=== PATIENT | female | born 1940 | race Caucasian/White ===

== ENCOUNTER 2022-12-29 18:54 | Outpatient (NON) | payer MEDICARE, SELFPAY ==
[2022-12-29 20:05] LABS: Appearance Urine Clear (Clear); Bacteria Urine Rare /hpf; Bilirubin Urine Negative (Negative); Blood Urine Trace (Negative); Color Urine Yellow (Yellow); Glucose Urine UA Negative (Negative); Ketones Urine Negative (Negative); Leukocyte Esterase Ur 2+ LEU/UL (Negative); Nitrate Urine Negative (Negative); Non Pathogenic Casts 0-2; Protein Urine Negative (Negative); Specific Grav Ur 1.015 (1.001-1.035); Squamous Epithelial Cell Urine Moderate /hpf (Few); Urobilinogen Urine 0.2 mg/dL (<2.0); pH Urine 6.5 (5.0-9.0)
[2022-12-29 20:09] LABS: Add Urine Microscopic? YES
== END 2022-12-29 18:55 | disposition home or self-care (01) ==
PROVIDERS: PCP Internal Medicine; Visit Provider Nurse Practitioner
DX: R35.0 Frequency of micturition (principal); R30.0 Dysuria; N39.0 Urinary tract infection, site not specified
CPT/HCPCS: 81001; 87086; 87088

== ENCOUNTER 2022-12-31 20:12 | Emergency (ER) | payer MEDICARE, SELFPAY ==
[2022-12-31 20:31] VITALS: BP 128/67; PULSE 106; RESP 18; TEMP 37.1; O2SAT 95
[2022-12-31 20:59] VITALS: BP 132/65; PULSE 93; O2SAT 98
--- NOTE | 2022-12-31 20:59 | ED.GENADULT ---
HPI - General Adult General Chief complaint: Skin/Abscess/Foreign Body Stated complaint: rash Time Seen by Provider: 12/31/22 20:43 History of Present Illness HPI narrative: 82-year-old female presented to the emergency department for evaluation for allergic reaction. Patient states that she was started on Macrobid on for a suspected urinary tract infection. Patient denies any abdominal pain. Patient denies any associate nausea vomiting or diarrhea. Patient noticed that she started having a rash on her arms and legs. Patient does have some shortness of breath secondary to her lung cancer but patient denies any worsening of her shortness of breath. Patient is saturating well on room air. Patient reports he does have a prior history of a penicillin allergy where after she was taking the penicillin she developed a focal rash on her leg. Patient had no other allergic symptoms from this. Related Data Home Medications Medication Instructions Recorded Confirmed cholecalciferol (vitamin D3) 25 25 mcg PO DAILY 11/03/22 12/29/22 mcg (1,000 unit) capsule lisinopril 20 mg tablet 20 mg PO DAILY 11/03/22 12/29/22 mecobalamin (vitamin B12) 1,000 1,000 mcg PO DAILY 11/03/22 12/29/22 mcg chewable tablet metoprolol succinate 25 mg capsule 25 mg PO DAILY 11/03/22 12/29/22 sprinkle, ext. release 24 hr famotidine 20 mg tablet 20 mg PO DAILY 12/29/22 12/29/22 ondansetron HCl 8 mg tablet 8 mg PO BID-TID PRN 12/29/22 12/29/22 osimertinib 40 mg tablet (Tagrisso) 40 mg PO DAILY 12/29/22 12/29/22 prochlorperazine maleate 10 mg 10 mg feeding tube BID PRN 12/29/22 12/29/22 tablet Allergies Allergy/AdvReac Type Severity Reaction Status Date / Time levofloxacin Allergy MUSCLE PAIN Verified 12/29/22 11:53 Penicillins Allergy RASH Verified 12/29/22 11:53 sulfacetamide Allergy RASH Verified 12/29/22 11:53 Review of Systems Review of Systems: All systems reviewed & are unremarkable except as noted in HPI and below PMFSH Past Medical History Medical History (Updated 01/01/23 @ 00:00 by Teresa Dafroy) Cancer Surgical History Surgical History (Updated 11/03/22 @ 10:02 by Citlali [facility]) H/O: hysterectomy (~1962) History of nephrectomy (~1992) Hx of cholecystectomy (~1962) Family History Family History (Updated 11/03/22 @ 10:06 by Citlali [facility]) Grandparent Alcoholism Mother Cancer Sibling Cancer Sibling Cancer Social History Social History (Updated 12/29/22 @ 12:09 by Citlali [facility]) Smoking status: Never smoker Lack of Transportation: No Lack of Food: Never True Current Housing: I Have Housing Concerned About Future Housing: No Difficulty Paying Gas/Electric Bills: No Difficulty Paying for Meds: No Currently Unemployed: No Education: High School Diploma/GED Difficulty w/ Childcare or Family Care: No Exam Narrative: APPEARANCE: Well appearing, no pain, no distress, well-nourished. HEAD: normocephalic, atraumatic. EYES: PERRLA/EOMI, conjunctivae clear. NOSE: Normal no drainage EARS:TMS clear with good light reflex. THROAT: Pharynx clear, no exudate. NECK: Supple. No adenopathy, no masses. RESPIRATORY: Airway patent, respirations nonlabored. Clear to auscultation bilaterally, no rales, rhonchi, wheezing. CARDIOVASCULAR: Regular rate and rhythm without murmurs rubs or gallops. ABDOMINAL: Soft, nontender, nondistended, normal bowel sounds MUSCULOSKELETAL: Moves all extremities. Strength/ROM intact, No edema, No calf tenderness. NEURO: Alert. Cranial nerves II through XII intact. Good gait. Good coordination SKIN: Drug rash on arms and legs Course Course Emergency Course: 82-year-old female presented the ED for evaluation of a suspected drug rash secondary to starting Macrobid. Patient was instructed to stop taking Macrobid. Patient states he does have a previous history of a penicillin allergy where 1 time she had a focal area of redness on her left
== END 2022-12-31 21:30 | disposition home or self-care (01) ==
LOC: ANHED 21:15
PROVIDERS: Emergency Provider Emergency Medicine; PCP Internal Medicine
DX: L27.0 Generalized skin eruption due to drugs and medicaments taken internally (principal); C34.90 Malignant neoplasm of unspecified part of unspecified bronchus or lung
CPT/HCPCS: 99283

== ENCOUNTER → 2023-01-20 10:27 | Outpatient (CLI) | payer MEDICARE, SELFPAY ==
--- NOTE | ~2023-01-20 | MM_ITS ---
EXAMINATION: MM screening tommy BI w sarita HISTORY: Screening mammogram TECHNIQUE: Craniocaudal and mediolateral oblique 3-D tomosynthesis images were obtained and synthetic 2-D images were generated. CAD analysis was submitted and interpreted. COMPARISON: No prior mammogram is available for comparison at this institution. BREAST PARENCHYMAL COMPOSITION: There are scattered areas of fibroglandular density. FINDINGS: There is no evidence of suspicious mass, calcification, or architectural distortion to sugg est malignancy in either breast. There has been no suspicious interval change. IMPRESSION: 1. No mammographic evidence of malignancy. 2. Recommend routine screening mammography in one year. BI-RADS Category 1: Negative Reviewed, dictated and finalized at location A.
== END ==
PROVIDERS: PCP Nurse Practitioner; Visit Provider Nurse Practitioner
DX: Z12.31 Encounter for screening mammogram for malignant neoplasm of breast (principal)
CPT/HCPCS: 77063; 77067

== ENCOUNTER 2023-05-01 10:23 | Outpatient (CLI) | payer MEDICARE, SELFPAY | END 2023-05-01 10:24 | disposition home or self-care (01) | PROVIDERS: PCP Internal Medicine; Visit Provider Internal Medicine | DX: R41.89 Other symptoms and signs involving cognitive functions and awareness (principal); I10 Essential (primary) hypertension; E78.5 Hyperlipidemia, unspecified; R30.0 Dysuria; C34.90 Malignant neoplasm of unspecified part of unspecified bronchus or lung | CPT/HCPCS: 36415; 84443 ==

== ENCOUNTER 2023-05-07 17:06 | Emergency (ER) | payer MEDICARE, SELFPAY ==
--- NOTE | ~2023-05-07 | CT_ITS ---
EXAMINATION: CT brain wo con DATE: 05/07/2023 21:50 INDICATION: dizziness vomiting . TECHNIQUE: Computed tomography (CT) of the head was performed without intravenous contrast. The mA wa s adjusted according to patient size. Iterative reconstruction technique was employed. The dose-lengt h product was 605.33 mGy-cm. COMPARISON: None. FINDINGS: No acute intracranial hemorrhage or extra-axial fluid collection. No hydrocephalus, mass, or herniation. No acute ischemic infarct. Unremarkable dural venous sinus attenuation. No acute osseous abnormality. Left maxillary sinus retention cyst/polyp, the remaining aerated spaces are clear. Moderate atrophy and chronic white matter change. Atherosclerotic intracranial calcification. Bilater al lens replacements. IMPRESSION: No acute intracranial process. Reviewed, dictated and finalized at location K.
--- NOTE | ~2023-05-07 | CT_ITS ---
EXAMINATION: CT abdomen pelvis w con DATE: 05/07/2023 22:02 INDICATION: L sided abd pain, N/V TECHNIQUE: Computed tomography (CT) of the abdomen and pelvis was performed with 100 mL Omnipaque-350 intravenous contrast. Automated exposure control and iterative reconstruction technique were employe d. The dose-length product was 336.39 mGy-cm. COMPARISON: None. FINDINGS: Lower thorax: Granulomas calcifications. Bibasilar scar/atelectasis. Liver: Normal. Biliary/Gallbladder: Gallbladder is absent. Mild intrahepatic and extra hepatic bile duct dilation, l ikely secondary to cholecystectomy. Pancreas: No mass or duct dilation. Spleen: Normal. Adrenals:No mass. Kidneys: Surgically absent left kidney. No recurrent mass. Mild right caliectasis. Focal cortical sca r at the right midpole. No suspicious mass, obstructing stone, or significant hydronephrosis on the r ight. GI tract: Mild distal esophageal and gastric wall edema. Small hiatal hernia. Focal short segment are a of dilated small bowel in the left mid abdomen, adjacent to a noninflamed duodenal diverticulum (ax ial image 81/186, coronal image 51/110). No large bowel dilation. Appendix presumably surgically abse nt. Diverticulosis without diverticulitis. Mesentery/Peritoneum: No ascites, mass, or free air. Retroperitoneum: No mass. Atherosclerotic abdominal aortic and/or arterial calcifications. Pelvis: Pelvic organs are within normal limits. Soft Tissues: Soft tissues and body wall unremarkable. Bones: No acute osseous finding. IMPRESSION: Mild esophagitis/gastritis. Status post left nephrectomy, no residual mass detected. Short segment focal small bowel dilation adjacent to a noninflamed duodenal diverticulum, may represe nt mild ileus. Early obstruction not excluded. Distended urinary bladder without wall thickening. Correlate for clinical findings of urinary retenti on. Reviewed, dictated and finalized at location K. IMPRESSION: Mild esophagitis/gastritis. Status post left nephrectomy, no residual mass detected. Short segment focal small bowel dilation adjacent to a noninflamed duodenal div erticulum, may represent mild ileus. Early obstruction not excluded. Distended urinary bladder without wall thickening. Correlate for clinical findi ngs of urinary retention.
[2023-05-07 17:08] VITALS: BP 174/92; PULSE 99; RESP 18; TEMP 37; O2SAT 100
--- NOTE | 2023-05-07 18:11 | ED.NAVMDI ---
HPI - Nausea/Vomiting/Diarrhea General Chief complaint: Nausea/Vomiting/Diarrhea <CLEMENCIA Lundy Last Filed: 05/08/23 03:06> Stated complaint: Dizzy, Nausea <CLEMENCIA Lundy Last Filed: 05/08/23 03:06> Time Seen by Provider: 05/07/23 17:42 <CLEMENCIA Lundy Last Filed: 05/08/23 03:06> Source: patient <CLEMENCIA Lundy Last Filed: 05/08/23 03:06> Mode of arrival: ambulatory <CLEMENCIA Lundy Last Filed: 05/08/23 03:06> Limitations: no limitations <CLEMENCIA Lundy Last Filed: 05/08/23 03:06> History of Present Illness HPI Narrative: Patient is an 83-year-old female who presents ED with report of dizziness, nausea, vomiting. Patient reports she became dizzy around 3 PM today. She describes the dizziness as feeling more lightheaded than that the room is spinning or things are moving around her. The dizziness is worse with sitting upright, turning her head left or right. She developed nausea and vomiting today and feels this is related to the dizziness. She does complain of mild gas pains throughout her left sided abdomen. Denies diarrhea, constipation, headache, vision changes, focal weakness, generalized weakness, numbness, confusion, fevers, cough or cold symptoms. Patient has never had dizziness like this before. <CLEMENCIA Lundy Last Filed: 05/08/23 03:06> Related Data Home medications: Home Medications Medication Instructions Recorded Confirmed cholecalciferol (vitamin D3) 25 25 mcg PO DAILY 11/03/22 05/01/23 mcg (1,000 unit) capsule lisinopril 20 mg tablet 20 mg PO DAILY 11/03/22 05/01/23 mecobalamin (vitamin B12) 1,000 1,000 mcg PO DAILY 11/03/22 05/01/23 mcg chewable tablet famotidine 20 mg tablet 20 mg PO DAILY 12/29/22 05/01/23 ondansetron HCl 8 mg tablet 8 mg PO BID-TID PRN 12/29/22 05/01/23 osimertinib 40 mg tablet (Tagrisso) 40 mg PO DAILY 12/29/22 05/01/23 prochlorperazine maleate 10 mg 10 mg PO BID PRN 01/09/23 05/01/23 tablet Bacillus coagulans 800 million cell PO 05/01/23 05/01/23 cell tablet (Digestive Advantage Probiotics-Prebiotic) albuterol sulfate 90 mcg/actuation 1 puff inhalation Q4H PRN 05/01/23 05/01/23 aerosol inhaler (Ventolin HFA) echinacea 500 mg capsule 500 mg PO BID 05/01/23 05/01/23 magnesium 200 mg tablet 200 mg PO .COMPLEX 05/01/23 05/01/23 triamcinolone acetonide 0.1 % 1 applic topical BID 05/01/23 05/01/23 topical cream zinc citrate 11 mg chewable tablet mg PO 05/01/23 05/01/23 <CLEMENCIA Lundy Last Filed: 05/08/23 03:06> Allergies/Adverse reactions: Allergies Allergy/AdvReac Type Severity Reaction Status Date / Time nitrofurantoin Allergy Mild Rash Verified 05/07/23 17:10 [From Macrobid] levofloxacin Allergy MUSCLE PAIN Verified 05/07/23 17:10 Penicillins Allergy RASH Verified 05/07/23 17:10 sulfacetamide Allergy RASH Verified 05/07/23 17:10 <CLEMENCIA Lundy Last Filed: 05/08/23 03:06> Review of Systems Review of Systems: CONSTITUTIONAL: Denies fever, chills, or sweats. EYES: Denies visual changes. CARDIOVASCULAR: Denies chest pain. RESPIRATORY: Denies dyspnea. GASTROINTESTINAL: See HPI. MUSCULOSKELETAL: Denies back pain, joint pain, or myalgia. NEUROLOGIC: See HPI. <CLEMENCIA Lundy Last Filed: 05/08/23 03:06> All systems reviewed & are unremarkable except as noted in HPI and below <CLEMENCIA Lundy Last Filed: 05/08/23 03:06> PMFSH Past Medical History Medical History: Medical History Cancer Dysuria <Jonna Greenwood PA-C - Last Filed: 05/08/23 03:06> Surgical History Surgical History: Surgical History H/O: hysterectomy (~1962) History of nephrectomy (~1992) Hx of cholecystectomy (~1962) <Jonna Woods
--- NOTE | 2023-05-07 18:23 | ECG_ITS ---
Measurements Intervals [place] Rate: 88 P: 28 [place]: 164 QRS: -5 QRSD: 84 T: -5 QT: 405 QTc: 492 Interpretive Statements SINUS RHYTHM WITH OCCASIONAL SUPRAVENTRICULAR PREMATURE COMPLEXES OTHERWISE ESSENTIALLY UNREMARKABLE ECG NO PREVIOUS ECG AVAILABLE FOR COMPARISON Electronically Signed On 05-08-2023 13:29:08 CDT by Magdiel Sena M.D.
[2023-05-07 19:00] LABS: Basophils Percent Auto 0.6 % (0.2-1.2); Eosinophils Absolute Auto 0.1 K/mm3 (0-0.3); Eosinophils Percent Auto 2.6 % (0-4.4); Hematocrit 39.3 % (37.0-47.0); Immature Granulocyte Absolute 0.01 K/mm3 (0.00-0.031); Immature Granulocyte Percent A 0.2 % (0-0.5); Lymphocytes Absolute Auto 1.48 K/mm3 (0.9-3.2); Lymphocytes Percent Auto 31.5 % (18.3-44.2); Mean Corpuscular HGB Conc 33.1 g/dl (32-36); Mean Corpuscular Volume 90.8 fl (80-100); Mean Platelet Volume 11.9 fl (7.4-10.4); Monocytes Absolute Auto 0.6 K/mm3 (0.1-0.6); Monocytes Percent Auto 12.1 % (2.6-8.5); Neutrophils Absolute Auto 2.5 K/mm3 (1.3-6.7); Platelet Count Result 227 k/mm3 (150-375); Red Blood Count 4.33 M/mm3 (4.2-5.4); Red Cell Distribution Width 13.4 % (11.5-14.5); White Blood Count 4.7 K/mm3 (4.5-10.0)
[2023-05-07] MEDS: MECLIZINE HCL 25 MG TABLET PO (19:02)
[2023-05-07] MEDS: SODIUM CHLORIDE 0.9% IV 1,000 ML 999 ML IV CONT (19:02)
[2023-05-07] MEDS: ONDANSETRON INJ 4 MG/2 ML VIAL IV PUSH (19:02)
[2023-05-07 20:29] LABS: Appearance Urine Clear (Clear); Bilirubin Urine Negative (Negative); Blood Urine Negative (Negative); Color Urine Yellow (Yellow); Glucose Urine UA Negative (Negative); Ketones Urine Negative (Negative); Leukocyte Esterase Ur Trace LEU/UL (Negative); Nitrate Urine Negative (Negative); Protein Urine Negative (Negative); Specific Grav Ur 1.015 (1.001-1.035); Urobilinogen Urine 0.2 mg/dL (<2.0); pH Urine 7.5 (5.0-9.0)
[2023-05-07 20:33] LABS: Bacteria Urine None Seen /hpf; Non Pathogenic Casts 0-2; RBC Urine 0-2 /hpf (0-2); Squamous Epithelial Cell Urine None seen /hpf (Few); WBC Urine 0-5 /hpf
[2023-05-07 20:36] LABS: Add Urine Microscopic? NO
[2023-05-07 21:44] LABS: Alanine Aminotransferase 14 U/L (6-35); Albumin Level 4.1 g/dL (3.5-5.1); Alkaline Phosphatase 78 U/L (38-126); Anion Gap 6 mmol/L (8-16); Aspartate Amino Transferase 25 U/L (14-36); Bilirubin,Total 0.5 mg/dL (0.2-1.3); Blood Urea Nitrogen 8 mg/dL (7-17); Calcium 8.4 mg/dL (8.4-10.2); Carbon Dioxide 28 mmol/L (22-30); Chloride 98 mmol/L (98-107); Estimated CRCL calculation 49 ml/min; Estimated Glomerular Filt Rate > 60; Glucose 113 mg/dL (65-110); Lipase 88 U/L (23-300); Potassium 3.9 mmol/L (3.4-5.0); Sodium 132 mmol/L (137-145)
[2023-05-07 22:04] LABS: Influenza A QL RT-PCR Negative (Negative); Influenza B QL RT-PCR Negative (Negative); SARS-CoV-2 RNA PCR Negative (Negative)
[2023-05-07 23:09] VITALS: BP 155/78; PULSE 91; RESP 12; O2SAT 99
[2023-05-07] MEDS: diazePAM INJ (*CRX) 10 MG/2 ML SYRINGE 2 MG IV PUSH (23:22)
== END 2023-05-08 01:03 | disposition home or self-care (01) ==
PROVIDERS: Emergency Provider Physician Assistant; PCP Internal Medicine
DX: K56.7 Ileus, unspecified (principal); R42 Dizziness and giddiness; Z20.822 Contact with and (suspected) exposure to COVID-19; Z85.9 Personal history of malignant neoplasm, unspecified; Z90.710 Acquired absence of both cervix and uterus; Z90.5 Acquired absence of kidney; Z90.49 Acquired absence of other specified parts of digestive tract
CPT/HCPCS: 36415; 70450; 74177; 80053; 81003; 83690; 85025; 87636; 93005; 96361; 96374; 96375; 99284; A9270; J2405; J3360; J7030; Q9967

== ENCOUNTER 2023-09-07 20:35 | Emergency (ER) | payer MEDICARE, SELFPAY ==
[2023-09-07] VITALS (9 sets, daily range): BP systolic 161–179; BP diastolic 81–85; PULSE 85–96; RESP 15–19; TEMP 37–37.3; O2SAT 97–100
--- NOTE | ~2023-09-07 | CT_ITS ---
CT of the Abdomen and Pelvis: Indication: Abdominal pain Technique: 2.5 mm axial scans were obtained through the abdomen and pelvis following intravenous adm inistration of 100 cc of Omnipaque 350. Dose reduction technique was used on this scan by utilizing a utomated exposure control and iterative reconstruction technique. The dose-length product (DLP) was 3 21.06 mGy-cm. Findings: Scans through the lung bases are unremarkable. The liver, spleen, pancreas, adrenals and right kidney are within normal limits. Patient is status po st cholecystectomy and left nephrectomy. There are atherosclerotic calcifications of the aorta. No l ymphadenopathy. No bowel obstruction or bowel wall thickening. There is no evidence to suggest acute appendicitis. Th ere is focal infiltrative change in the subcutaneous fat in the anterior left lower quadrant. Images through the pelvis were performed. Urinary bladder unremarkable. No pelvic mass seen. No ascit es. Impression: Focal infiltrative change in the subcutaneous fat in the anterior left lower quadrant. This could ref lect sequelae of subcutaneous injection. Correlate for focal inflammatory process. No other significant findings. Reviewed, dictated and finalized at location M. RAL SUPPLY NURSE Impression: Focal infiltrative change in the subcutaneous fat in the anterior left lower qu adrant. This could reflect sequelae of subcutaneous injection. Correlate for fo alvino inflammatory process. No other significant findings.
[2023-09-07 22:57] LABS: Basophils Percent Auto 0.5 % (0.2-1.2); Eosinophils Absolute Auto 0.1 K/mm3 (0-0.3); Eosinophils Percent Auto 1.7 % (0-4.4); Hematocrit 40.3 % (37.0-47.0); Hemoglobin 13.5 g/dL (12.0-15.0); Immature Granulocyte Absolute 0.01 K/mm3 (0.00-0.031); Immature Granulocyte Percent A 0.2 % (0-0.5); Lymphocytes Absolute Auto 0.82 K/mm3 (0.9-3.2); Lymphocytes Percent Auto 14.1 % (18.3-44.2); Mean Corpuscular HGB Conc 33.5 g/dl (32-36); Mean Corpuscular Hemoglobin 30.3 pg (26-34); Mean Corpuscular Volume 90.4 fl (80-100); Mean Platelet Volume 10.5 fl (7.4-10.4); Monocytes Absolute Auto 0.8 K/mm3 (0.1-0.6); Monocytes Percent Auto 12.9 % (2.6-8.5); Neutrophils Absolute Auto 4.1 K/mm3 (1.3-6.7); Neutrophils Percent Auto 70.6 % (45.5-73.1); Platelet Count Result 208 k/mm3 (150-375); Red Blood Count 4.46 M/mm3 (4.2-5.4); Red Cell Distribution Width 13.8 % (11.5-14.5); White Blood Count 5.8 K/mm3 (4.5-10.0)
[2023-09-07 23:12] LABS: Alanine Aminotransferase 13 U/L (6-35); Albumin Level 4.6 g/dL (3.5-5.1); Alkaline Phosphatase 116 U/L (38-126); Anion Gap 9 mmol/L (8-16); Aspartate Amino Transferase 28 U/L (14-36); Bilirubin,Total 0.7 mg/dL (0.2-1.3); Blood Urea Nitrogen 10 mg/dL (7-17); Calcium 9.4 mg/dL (8.4-10.2); Carbon Dioxide 27 mmol/L (22-30); Chloride 96 mmol/L (98-107); Estimated CRCL calculation 55 ml/min; Estimated Glomerular Filt Rate > 60; Glucose 117 mg/dL (65-110); Lipase 88 U/L (23-300); Potassium 3.7 mmol/L (3.4-5.0); Sodium 132 mmol/L (137-145)
[2023-09-07 23:17] LABS: Appearance Urine Clear (Clear); Bacteria Urine None Seen /hpf; Bilirubin Urine Negative (Negative); Blood Urine 1+ (Negative); Color Urine Yellow (Yellow); Glucose Urine UA Negative (Negative); Ketones Urine Trace mg/dL (Negative); Leukocyte Esterase Ur Negative LEU/UL (Negative); Nitrate Urine Negative (Negative); Non Pathogenic Casts 0-2; Protein Urine Negative (Negative); Specific Grav Ur 1.016 (1.001-1.035); Squamous Epithelial Cell Urine None seen /hpf (Few); Urobilinogen Urine 0.2 mg/dL (<2.0); WBC Urine 0-5 /hpf
--- NOTE | 2023-09-07 23:17 | ED.ABDPAIN ---
HPI - Abdominal Pain General Chief Complaint: Abdominal Pain Stated Complaint: abd/back pain L sided; post op vocal cord sx Time Seen by Provider: 09/07/23 22:18 History of Present Illness HPI narrative: Patient is an 83-year-old female presenting with abdominal pain. Patient's son is at bedside and helps with the history. States that she developed left lower quadrant pain earlier today it radiates into her left flank. Associated with nausea but no vomiting. Denies dysuria or urinary frequency. No chest pain or shortness of breath. States that she recently had a procedure done on her vocal cords. Related Data Home Medications Medication Instructions Recorded Confirmed cholecalciferol (vitamin D3) 25 25 mcg PO DAILY 11/03/22 05/16/23 mcg (1,000 unit) capsule lisinopril 20 mg tablet 20 mg PO DAILY 11/03/22 05/16/23 mecobalamin (vitamin B12) 1,000 1,000 mcg PO DAILY 11/03/22 05/16/23 mcg chewable tablet famotidine 20 mg tablet 20 mg PO DAILY 12/29/22 05/16/23 ondansetron HCl 8 mg tablet 8 mg PO BID-TID PRN 12/29/22 05/16/23 osimertinib 40 mg tablet (Tagrisso) 40 mg PO DAILY 12/29/22 05/16/23 prochlorperazine maleate 10 mg 10 mg PO BID PRN 01/09/23 05/16/23 tablet Bacillus coagulans 800 million cell PO 05/01/23 05/16/23 cell tablet (Digestive Advantage Probiotics-Prebiotic) echinacea 500 mg capsule 500 mg PO BID 05/01/23 05/16/23 magnesium 200 mg tablet 200 mg PO .COMPLEX 05/01/23 05/16/23 triamcinolone acetonide 0.1 % 1 applic topical BID 05/01/23 05/16/23 topical cream zinc citrate 11 mg chewable tablet mg PO 05/01/23 05/16/23 Allergies Allergy/AdvReac Type Severity Reaction Status Date / Time nitrofurantoin Allergy Mild Rash Verified 05/16/23 08:43 [From Macrobid] levofloxacin Allergy MUSCLE PAIN Verified 05/16/23 08:43 Penicillins Allergy RASH Verified 05/16/23 08:43 sulfacetamide Allergy RASH Verified 05/16/23 08:43 Review of Systems Review of Systems: All systems reviewed & are unremarkable except as noted in HPI and below PMFSH Past Medical History Medical History Cancer Dysuria Mild cognitive impairment Surgical History Surgical History H/O: hysterectomy (~1962) History of nephrectomy (~1992) Hx of cholecystectomy (~1962) Family History Family History Grandparent Alcoholism Mother Cancer Sibling Cancer Sibling Cancer Social History Social History Social History: Caffeine-daily Smoking status: Never smoker Alcohol intake: never Lack of Transportation: No Lack of Food: Never True Current Housing: I Have Housing Concerned About Future Housing: No Difficulty Paying Gas/Electric Bills: No Difficulty Paying for Meds: No Currently Unemployed: No Education: High School Diploma/GED Difficulty w/ Childcare or Family Care: No Exam Narrative: GENERAL: Well-appearing, In no acute distress, pleasant cooperative HEAD: Normocephalic, atraumatic. EYES: PERRLA and EOMI. ENT: Mucous membranes moist. NECK: Supple. CHEST: Clear to auscultation. No respiratory distress. HEART: Regular rate and rhythm. ABDOMEN: Soft, + left lower quadrant tenderness without guarding or rebound; area of ecchymosis LLQ from site of fat transfer EXTREMITIES: Normal range of motion. No edema. SKIN: Warm, dry, as above NEURO: No focal deficits. Alert and oriented x3. PSYCH: Normal mood and affect. Course Vital Signs Vital signs: Vital Signs Temperature 99.1 F 09/07/23 20:53 Pulse Rate 96 09/07/23 20:53 Respiratory Rate 15 09/07/23 20:53 Blood Pressure 179/84 H 09/07/23 20:53 Pulse Oximetry 99 09/07/23 20:53 Oxygen Delivery Room Air 09/07/23 20:53 Temperature 98.6 F 09/07/23 22:22 Pulse Rate 74
--- NOTE | 2023-09-07 23:24 | PC.NURSE ---
care and report given to NITESH Larios. all questions answered.
[2023-09-07 23:32] LABS: Add Urine Microscopic? YES
--- NOTE | 2023-09-07 23:33 | PC.NURSE ---
Assumed care of pt. Bedside report from NITESH Mahoney. Pt away at test at this time.
[2023-09-07] MEDS: SODIUM CHLORIDE 0.9% IV 1,000 ML 999 ML IV CONT (23:41)
[2023-09-08] VITALS (27 sets, daily range): BP systolic 100–172; BP diastolic 64–110; PULSE 74–86; RESP 14–16; O2SAT 92–100
[2023-09-08] MEDS: ONDANSETRON INJ 4 MG/2 ML VIAL IV PUSH (00:22)
--- NOTE | 2023-09-08 00:22 | PC.NURSE ---
Call received from [facility] who states they are unable to fax paperwork tonight because it is digital. States she will call [facility] to see if they will allow pt to come overnight and have the papers faxed in the am.
[2023-09-08] MEDS: MORPHINE SULFATE (*CRX) 2 MG/ML INJ IV PUSH ×2 (00:23→01:33)
--- NOTE | 2023-09-08 03:29 | PC.NURSE ---
Pt reports pain resolved.
== END 2023-09-08 04:28 | disposition home or self-care (01) ==
PROVIDERS: Emergency Provider Emergency Medicine; PCP Internal Medicine
DX: R10.32 Left lower quadrant pain (principal); R11.0 Nausea; G31.84 Mild cognitive impairment of uncertain or unknown etiology; Z85.9 Personal history of malignant neoplasm, unspecified; Z90.710 Acquired absence of both cervix and uterus; Z90.5 Acquired absence of kidney; Z90.49 Acquired absence of other specified parts of digestive tract
CPT/HCPCS: 36415; 74177; 80053; 81001; 83690; 85025; 96361; 96374; 96375; 99284; J2270; J2405; J7030; Q9967

== ENCOUNTER 2023-10-03 10:54 | Outpatient (CLI) | payer MEDICARE, SELFPAY ==
[2023-10-03 19:06] LABS: Appearance Urine Clear (Clear); Bacteria Urine None Seen /hpf; Bilirubin Urine Negative (Negative); Color Urine Yellow (Yellow); Glucose Urine UA Negative (Negative); Ketones Urine Negative (Negative); Leukocyte Esterase Ur Negative LEU/UL (NEGATIVE); Nitrate Urine Negative (Negative); Protein Urine Negative (Negative); Specific Grav Ur 1.014 (1.001-1.035); Squamous Epithelial Cell Urine Occasional /hpf (Few); Urobilinogen Urine 0.2 mg/dL (<2.0); WBC Urine 0-5 /hpf (0-3); pH Urine 6.5 (5.0-9.0)
[2023-10-03 19:19] LABS: Add Urine Microscopic? YES
== END 2023-10-03 10:55 | disposition home or self-care (01) ==
PROVIDERS: PCP Internal Medicine; Visit Provider Internal Medicine
DX: R10.9 Unspecified abdominal pain (principal); G89.29 Other chronic pain
CPT/HCPCS: 81001

== ENCOUNTER 2023-10-11 14:44 | Emergency (ER) | payer MEDICARE, SELFPAY ==
--- NOTE | ~2023-10-11 | CT_ITS ---
EXAMINATION: CTA chest PE abdomen pel DATE: 10/11/2023 18:11 INDICATION: Left chest pain. Dyspnea. Lung cancer. TECHNIQUE: Computed tomography angiography (CTA) of the chest was performed with 100 mL Omnipaque-350 intravenous contrast timed to evaluate the pulmonary arteries. Coronal maximum intensity projection 3D-reconstructions were created by the technologist. Computed tomography (CT) of the abdomen and pelv is was performed with intravenous contrast. Automated exposure control and iterative reconstruction t echnique were employed. The dose-length product was 422.00 mGy-cm. COMPARISON: CT abdomen and pelvis 09/07/23 FINDINGS: CTA chest: There is mild atelectasis in right lung. There is a large left pleural effusion with right clark shift of the mediastinum. There is nodular pleural thickening in left hemithorax, consistent met astatic disease. There is near complete collapse of left lung. Calcified left lung nodules are consis tent with old granulomatous disease. There is mild left supraclavicular lymphadenopathy. The heart si ze is normal. No pericardial effusion. There is no pulmonary embolus. There is thoracic kyphosis and severe spondylosis. CT abdomen and pelvis: The liver is normal. There are changes of cholecystectomy. The spleen, pancrea s, and adrenal glands are normal. There is focal cortical thinning of right kidney. There are changes of left nephrectomy. There is diverticulosis of the colon without evidence of diverticulitis. The ap pendix is not visualized. There is aortic atherosclerosis is noted. There is left para-aortic lymphad enopathy. There is no free intraperitoneal fluid. There is moderate lumbar spondylosis. IMPRESSION: 1. Large malignant left pleural effusion with rightward shift of the mediastinum. 2. Left supraclavicular and left para-aortic lymphadenopathy, consistent with metastatic disease. 3. No pulmonary embolus. Reviewed, dictated and finalized at location E. ER/PULLER IMPRESSION: 1. Large malignant left pleural effusion with rightward shift of the mediastinu m. 2. Left supraclavicular and left para-aortic lymphadenopathy, consistent with m etastatic disease. 3. No pulmonary embolus.
--- NOTE | ~2023-10-11 | US_ITS ---
EXAMINATION: US thoracentesis DATE: 10/13/2023 16:45 INDICATION: Unilateral left pleural effusion TECHNIQUE: The procedure and its risks and benefits were discussed with the patient. Potential risks discussed included bleeding, infection, and pneumothorax. The patient understood the risks and agreed to proceed. The skin was prepped and draped in sterile fashion. 1% lidocaine was used for local anes thesia. Under ultrasound guidance, a 5 Fr catheter with trochar was advanced into the large left pleu ral effusion. Fluid was aspirated. The catheter was removed, and a dressing was applied. There were n o immediate complications. FINDINGS: Ultrasound images demonstrate a arch left pleural effusion and the catheter within the fluid. Inciden tally noted are a couple approximately 3 x 2 cm pleural-based masses along the diaphragm as well as a 9 mm hypoechoic nodule corresponding to a subpectoral lymph node on prior CT but which are concernin g for metastatic disease. IMPRESSION: 1. Successful ultrasound-guided thoracentesis yielding 1100 mL of bloody dark maroon-colored fluid w hich is concerning for malignant pleural effusion. 2. A couple pleural-based masses and prominent subpectoral lymph node concerning for metastatic disea se. Reviewed, dictated and finalized at location A. GER CASH IMPRESSION: 1. Successful ultrasound-guided thoracentesis yielding 1100 mL of bloody dark maroon-colored fluid which is concerning for malignant pleural effusion. 2. A couple pleural-based masses and prominent subpectoral lymph node concernin g for metastatic disease.
--- NOTE | ~2023-10-11 | XR_ITS ---
XR chest 1V portable DATE: 10/14/2023 10:07 INDICATION: Shortness of breath TECHNIQUE: Portable upright AP chest on 10/14/2023 at 1002 hours COMPARISON: 10/13/2023 AP chest FINDINGS: Moderately large left pleural effusion with associated compressive atelectasis of the left lung. Suggestion of slight left apical pneumothorax. The right lung appears clear. No right pleural effusion. Heart size is not assessable due to the obliteration of the left cardiac margin by the pleural fluid collection. Aortic arch calcification. Diffuse osteopenia. IMPRESSION: Moderately large left pleural effusion; suggestion of slight left apical pneumothorax Reviewed, dictated and finalized at location A. SCHOOL SCIENCE TUTOR IMPRESSION: Moderately large left pleural effusion; suggestion of slight left a pical pneumothorax
--- NOTE | ~2023-10-11 | XR_ITS ---
EXAMINATION: [id number] DATE: 10/13/2023 16:27 INDICATION: Left pleural effusion status post thoracentesis. TECHNIQUE: A single frontal view of the chest was obtained. COMPARISON: Chest CT 10/11/2023, chest 2 views 10/11/23 FINDINGS: There is a large left pleural effusion. There is rightward shift of mediastinum. Calcified pulmonary nodules and calcified hilar and mediastinal lymph nodes are consistent with old granulomato us disease. No pneumothorax. The heart size is obscured. IMPRESSION: 1. Large left pleural effusion with rightward shift of the mediastinum with slight improvement status post thoracentesis. Reviewed, dictated and finalized at location E. [employer] DRIVER IMPRESSION: 1. Large left pleural effusion with rightward shift of the mediastinum with sli ght improvement status post thoracentesis.
--- NOTE | ~2023-10-11 | XR_ITS ---
EXAMINATION: XR chest 1V portable DATE: 10/14/2023 15:00 INDICATION: Left pneumothorax. TECHNIQUE: A single frontal view of the chest was obtained. COMPARISON: Chest single view at 10:00 AM. FINDINGS: There is a large left pleural effusion with nodular pleural thickening. There are airspace opacities in left lung. No pneumothorax. The heart size is obscured. There are surgical clips in the abdomen. IMPRESSION: 1. Worsened large left pleural effusion with nodular pleural thickening, consistent with metastatic d isease. Reviewed, dictated and finalized at location E. NEY REPAIRER IMPRESSION: 1. Worsened large left pleural effusion with nodular pleural thickening, consis tent with metastatic disease.
--- NOTE | ~2023-10-11 | XR_ITS ---
EXAMINATION: XR chest 2V DATE: 10/11/2023 15:39 INDICATION: Weakness. TECHNIQUE: Frontal and lateral views of the chest were obtained on 3 radiographs. COMPARISON: CT abdomen and pelvis 09/07/2023 FINDINGS: There is a large left pleural effusion with rightward shift of the mediastinum. There are a irspace opacities in left lung with a dependent predominance. A calcified right lung nodule is consis tent with old granulomatous disease. No pneumothorax. The heart size is obscured. There are surgical clips in the abdomen. IMPRESSION: 1. Large left pleural effusion. 2. Airspace opacities in left lung, consistent with atelectasis versus pneumonia. Reviewed, dictated and finalized at location E. NE ELECTRICIAN IMPRESSION: 1. Large left pleural effusion. 2. Airspace opacities in left lung, consistent with atelectasis versus pneumoni a.
[2023-10-11 15:09] VITALS: BP 126/65; PULSE 61; RESP 16; TEMP 36.5; O2SAT 95
--- NOTE | 2023-10-11 15:13 | ECG_ITS ---
Measurements Intervals [place] Rate: 120 P: 32 [place]: 139 QRS: 2 QRSD: 84 T: 50 QT: 331 QTc: 469 Interpretive Statements SINUS TACHYCARDIA ATRIAL AND VENTRICULAR PREMATURE COMPLEXES CONSIDER INFERIOR INFARCT, AGE INDETERMINATE BORDERLINE ST-T WAVE ABNORMALITY- ANTEROLAT/HIGH LAT LEADS BASELINE ARTIFACT- I, II, III, AVR, AVL, AVF, V1-V3 ABNORMAL ECG COMPARED TO ECG 05/07/2023 19:10:02 SINUS TACHYCARDIA NOW PRESENT Electronically Signed On 10-11-2023 15:52:24 PAPER REEL OPERATOR by Pavel Hull D.O.
--- NOTE | 2023-10-11 15:14 | ED.GENADULT ---
HPI - General Adult General Chief complaint: Unspecified <CLEMENCIA Courtney Last Filed: 10/14/23 17:15> Stated complaint: Dehydration <CLEMENCIA Courtney Last Filed: 10/14/23 17:15> Time Seen by Provider: 10/11/23 15:14 <CLEMENCIA Courtney Last Filed: 10/14/23 17:15> Focused HPI: This is a 83 year old female that presents to the ER for generalized weakness. Associated with decreased PO intake. Reports history of lung cancer for which she is currently being treated at [facility]. Reports left lower quadrant pain radiating into the flank which has been ongoing for a couple of weeks. Started after having radiation. Denies fever, vomiting, dysuria. GENERAL: Elderly, well-nourished, and in no acute distress. HEAD: Normocephalic, atraumatic. CHEST: No respiratory distress. Lung sounds diminished on the left HEART: Irregularly irregular? NEURO: ?Alert and oriented x3. Patient screened in triage and initial orders placed.? ?Additional care and disposition to be based upon?diagnostic testing and treatment. <CLEMENCIA Courtney Last Filed: 10/14/23 17:15> History of Present Illness HPI narrative: 83 y/o F with a hx of HTN, HLD, who is currently being treated for stage III lung cancer at [facility] reports for evaluation for generalized weakness and decreased p.o. intake in the past 48 hours.? Patient presents with her son at bedside who assists with history.? The patient has become more weak.? She is complaining of left lower quadrant abdominal pain which she has had multiple CTs of in the past without acute findings.? States her abdominal pain radiates to the left flank and back. Her PCP is advised her to take Tylenol for pain control which has not been working.? She is not complaining of left chest wall pain that is worse with palpation beneath her left breast and difficulty breathing that has been worse in the past few days.? She reports associated nausea but no vomiting, diarrhea, fever, cough, dysuria or hematuria.? She had radiation therapy in August 2023 is currently taking a daily chemotherapy pill.? Her oncologist is Dr. Rojo. <CLEMENCIA Cobian Filed: 10/20/23 13:08> Related Data Home medications: Home Medications Medication Instructions Recorded Confirmed cholecalciferol (vitamin D3) 25 25 mcg PO DAILY 11/03/22 10/03/23 mcg (1,000 unit) capsule lisinopril 20 mg tablet 20 mg PO DAILY 11/03/22 10/03/23 mecobalamin (vitamin B12) 1,000 1,000 mcg PO DAILY 11/03/22 10/03/23 mcg chewable tablet famotidine 20 mg tablet 20 mg PO DAILY 12/29/22 10/03/23 ondansetron HCl 8 mg tablet 8 mg PO BID-TID PRN 12/29/22 10/03/23 osimertinib 40 mg tablet (Tagrisso) 40 mg PO DAILY 12/29/22 10/03/23 prochlorperazine maleate 10 mg 10 mg PO BID PRN 01/09/23 10/03/23 tablet Bacillus coagulans 800 million cell PO 05/01/23 10/03/23 cell tablet (Digestive Advantage Probiotics-Prebiotic) echinacea 500 mg capsule 500 mg PO BID 05/01/23 10/03/23 magnesium 200 mg tablet 200 mg PO .COMPLEX 05/01/23 10/03/23 triamcinolone acetonide 0.1 % 1 applic topical BID 05/01/23 10/03/23 topical cream zinc citrate 11 mg chewable tablet mg PO 05/01/23 10/03/23 vitamin A-vitamin C-vitamin E 1 tablet PO DAILY 09/11/23 10/03/23 <Faye Rodriguez PA-C - Last Filed: 10/14/23 17:15> Allergies/adverse reactions: Allergies Allergy/AdvReac Type Severity Reaction Status Date / Time nitrofurantoin Allergy Mild Rash Verified 10/11/23 15:12 [From Macrobid] levofloxacin Allergy MUSCLE PAIN Verified 10/11/23 15:12 Penicillins Allergy RASH Verified 10/11/23 15:12 sulfacetamide Allergy RASH Verified 10/11/23 15:12 <Faye Rodriguez PA-C - Last Filed: 10/14/23 17:15> Review of Systems Review of Systems: CONSTITUTIONAL: Denies fever, chills, or sweats. EYES: Denies visual changes, redness, or discharge. ENT: Denies rhinorrhea, congestion, sore throat, or otalgia. CARDIOVASCULAR: Denies chest pain, p
[2023-10-11 15:41] LABS: Basophils Percent Auto 0.2 % (0.2-1.2); Eosinophils Absolute Auto 0.1 K/mm3 (0-0.3); Eosinophils Percent Auto 0.6 % (0-4.4); Hematocrit 38.3 % (37.0-47.0); Hemoglobin 13.2 g/dL (12.0-15.0); Immature Granulocyte Absolute 0.08 K/mm3 (0.00-0.031); Immature Granulocyte Percent A 0.6 % (0-0.5); Lymphocytes Absolute Auto 0.82 K/mm3 (0.9-3.2); Lymphocytes Percent Auto 6.5 % (18.3-44.2); Mean Corpuscular HGB Conc 34.5 g/dl (32-36); Mean Corpuscular Hemoglobin 31.4 pg (26-34); Mean Platelet Volume 10.7 fl (7.4-10.4); Monocytes Absolute Auto 1.3 K/mm3 (0.1-0.6); Monocytes Percent Auto 10.1 % (2.6-8.5); Neutrophils Absolute Auto 10.4 K/mm3 (1.3-6.7); Platelet Count Result 338 k/mm3 (150-375); Red Blood Count 4.21 M/mm3 (4.2-5.4); Red Cell Distribution Width 14.5 % (11.5-14.5); White Blood Count 12.7 K/mm3 (4.5-10.0)
[2023-10-11 15:56] LABS: Alanine Aminotransferase 15 U/L (6-35); Albumin Level 4.1 g/dL (3.5-5.1); Alkaline Phosphatase 100 U/L (38-126); Anion Gap 13 mmol/L (8-16); Aspartate Amino Transferase 32 U/L (14-36); Bilirubin,Total 0.7 mg/dL (0.2-1.3); Blood Urea Nitrogen 18 mg/dL (7-17); Calcium 9.3 mg/dL (8.4-10.2); Carbon Dioxide 23 mmol/L (22-30); Chloride 86 mmol/L (98-107); Estimated CRCL calculation 49 ml/min; Estimated Glomerular Filt Rate > 60; Glucose 121 mg/dL (65-110); Lipase 87 U/L (23-300); Potassium 3.3 mmol/L (3.4-5.0); Sodium 122 mmol/L (137-145)
[2023-10-11 16:07] LABS: Appearance Urine Clear (Clear); Bacteria Urine None Seen /hpf; Bilirubin Urine Negative (Negative); Color Urine Yellow (Yellow); Glucose Urine UA Negative (Negative); Ketones Urine 2+ mg/dL (Negative); Leukocyte Esterase Ur Negative LEU/UL (Negative); Nitrate Urine Negative (Negative); Non Pathogenic Casts 0-2; Protein Urine Negative (Negative); Specific Grav Ur 1.018 (1.001-1.035); Squamous Epithelial Cell Urine None seen /hpf (Few); WBC Urine 0-5 /hpf
[2023-10-11 16:12] LABS: Add Urine Microscopic? YES
--- NOTE | 2023-10-11 17:41 | ED.GENADULT ---
HPI - General Adult General Chief complaint: Unspecified Stated complaint: Dehydration Time Seen by Provider: 10/11/23 15:14 History of Present Illness HPI narrative: 83 y/o F with a hx of HTN, HLD, who is currently being treated for stage III lung cancer at [facility] reports for evaluation for generalized weakness and decreased p.o. intake in the past 48 hours. Patient presents with her son at bedside who assists with history. The patient has become more weak. She is complaining of left lower quadrant abdominal pain which she has had multiple CTs of in the past without acute findings. States her abdominal pain radiates to the left flank and back. Her PCP is advised her to take Tylenol for pain control which has not been working. She is not complaining of left chest wall pain that is worse with palpation beneath her left breast and difficulty breathing that has been worse in the past few days. She reports associated nausea but no vomiting, diarrhea, fever, cough, dysuria or hematuria. She had radiation therapy in August 2023 is currently taking a daily chemotherapy pill. Her oncologist is Dr. Rojo. Related Data Home Medications Medication Instructions Recorded Confirmed cholecalciferol (vitamin D3) 25 25 mcg PO DAILY 11/03/22 10/03/23 mcg (1,000 unit) capsule lisinopril 20 mg tablet 20 mg PO DAILY 11/03/22 10/03/23 mecobalamin (vitamin B12) 1,000 1,000 mcg PO DAILY 11/03/22 10/03/23 mcg chewable tablet famotidine 20 mg tablet 20 mg PO DAILY 12/29/22 10/03/23 ondansetron HCl 8 mg tablet 8 mg PO BID-TID PRN 12/29/22 10/03/23 osimertinib 40 mg tablet (Tagrisso) 40 mg PO DAILY 12/29/22 10/03/23 prochlorperazine maleate 10 mg 10 mg PO BID PRN 01/09/23 10/03/23 tablet Bacillus coagulans 800 million cell PO 05/01/23 10/03/23 cell tablet (Digestive Advantage Probiotics-Prebiotic) echinacea 500 mg capsule 500 mg PO BID 05/01/23 10/03/23 magnesium 200 mg tablet 200 mg PO .COMPLEX 05/01/23 10/03/23 triamcinolone acetonide 0.1 % 1 applic topical BID 05/01/23 10/03/23 topical cream zinc citrate 11 mg chewable tablet mg PO 05/01/23 10/03/23 vitamin A-vitamin C-vitamin E 1 tablet PO DAILY 09/11/23 10/03/23 Allergies Allergy/AdvReac Type Severity Reaction Status Date / Time nitrofurantoin Allergy Mild Rash Verified 10/11/23 15:12 [From Macrobid] levofloxacin Allergy MUSCLE PAIN Verified 10/11/23 15:12 Penicillins Allergy RASH Verified 10/11/23 15:12 sulfacetamide Allergy RASH Verified 10/11/23 15:12 Review of Systems Review of Systems: CONSTITUTIONAL: Denies fever, chills, or sweats. EYES: Denies visual changes, redness, or discharge. ENT: Denies rhinorrhea, congestion, sore throat, or otalgia. CARDIOVASCULAR: Denies chest pain, palpitations, or edema. RESPIRATORY: See HPI GASTROINTESTINAL: See HPI GENITOURINARY: Denies dysuria or hematuria. SKIN: Denies rash or itching. MUSCULOSKELETAL: Denies back pain, joint pain, or myalgia. NEUROLOGIC: Denies headache, numbness, or weakness. PSYCHIATRIC: Denies anxiety or depression. [facility] Past Medical History Medical History Cancer Dysuria Mild cognitive impairment Surgical History Surgical History H/O: hysterectomy (~1962) History of nephrectomy (~1992) Hx of cholecystectomy (~1962) Family History Family History Grandparent Alcoholism Mother Cancer Sibling Cancer Sibling Cancer Social History Social History Social History: Caffeine-daily Smoking status: Never smoker Alcohol intake: never Do You Feel Safe in your Home?: Yes Lack of Transportation: No Lack of Food: Never True Current Housing: I Have Housing Concerned About Future Housing: No Difficulty Paying Gas/Electric Bills: No Difficulty Paying
[2023-10-11 18:17] LABS: Troponin I < 0.012 ng/mL (0.000-0.034)
[2023-10-11 18:22] VITALS: BP 137/67; PULSE 116; RESP 20; O2SAT 97
[2023-10-11] MEDS: MORPHINE SULFATE (*CRX) 4 MG/ML INJ 2 MG IV PUSH (18:22)
[2023-10-11] MEDS: SODIUM CHLORIDE 0.9% IV 1,000 ML 999 ML IV CONT ×2 (18:22→19:59)
[2023-10-11] MEDS: ONDANSETRON INJ 4 MG/2 ML VIAL IV PUSH (18:22)
[2023-10-11 18:23] VITALS: PULSE 113
[2023-10-11 19:04] LABS: Influenza A QL RT-PCR Negative (Negative); Influenza B QL RT-PCR Negative (Negative); RSV RNA, RT-PCR Negative (Negative); SARS-CoV-2 RNA PCR Negative (Negative)
[2023-10-11 19:23] LABS: NT Pro B Type Natriuretic Pept 354 pg/mL (19.9-100)
[2023-10-11 19:32] VITALS: BP 114/88; PULSE 114; RESP 17; O2SAT 95
--- NOTE | 2023-10-11 19:36 | PC.NURSE ---
Addendum entered by Alisia Avalos RN 10/11/23 20:25: Accepting physician is pts oncologist, Dr. Saldaña. Original Note: Spoke with Harper with [facility] transfer center. All questions were answered and patient has been accepted and is awaiting a bed assignment.
[2023-10-11] MEDS: KCL 20 MEQ/SW 100 ML 100 ML 50 MEQ IVPB (19:59)
[2023-10-11 20:42] VITALS: BP 123/73; PULSE 112; RESP 18; O2SAT 94
[2023-10-11 23:46] VITALS: BP 151/75; PULSE 109; RESP 19; O2SAT 96
[2023-10-12] VITALS (22 sets, daily range): BP systolic 122–206; BP diastolic 68–103; PULSE 109–133; RESP 13–24; O2SAT 93–100
[2023-10-12] MEDS: SODIUM CHLORIDE 0.9% IV 1,000 ML 999 ML IV CONT (01:36)
--- NOTE | 2023-10-12 10:39 | PC.NURSE ---
bed status update - No Beds pt remains on wait list
--- NOTE | 2023-10-12 10:41 | PC.NURSE ---
This RN spoke with Emy at [facility] Transfer center regarding pt status and gave update. Emy stated that they do not have a bed available at this time and would call back when one becomes available
--- NOTE | 2023-10-12 11:22 | PC.NURSE ---
Report given to Cecilia DOWLING, all questions answered
[2023-10-12] MEDS: ONDANSETRON INJ 4 MG/2 ML VIAL IV PUSH ×3 (12:15→23:07)
[2023-10-12] MEDS: LACTATED RINGERS 1,000 ML 100 ML IV CONT (12:15)
--- NOTE | 2023-10-12 16:27 | PC.NURSE ---
Pt states she does not want a meal tray at this time
--- NOTE | 2023-10-12 19:10 | PC.NURSE ---
Report given to NITESH Hoover
[2023-10-12] MEDS: lisinopriL 20 MG TABLET PO (20:06)
[2023-10-12 21:58] LABS: Basophils Percent Auto 0.3 % (0.2-1.2); Eosinophils Percent Auto 0.1 % (0-4.4); Hematocrit 40.1 % (37.0-47.0); Hemoglobin 12.7 g/dL (12.0-15.0); Immature Granulocyte Absolute 0.08 K/mm3 (0.00-0.031); Immature Granulocyte Percent A 0.5 % (0-0.5); Lymphocytes Absolute Auto 0.36 K/mm3 (0.9-3.2); Lymphocytes Percent Auto 2.3 % (18.3-44.2); Mean Corpuscular HGB Conc 31.7 g/dl (32-36); Mean Corpuscular Hemoglobin 31.4 pg (26-34); Mean Corpuscular Volume 99.3 fl (80-100); Mean Platelet Volume 10.4 fl (7.4-10.4); Monocytes Absolute Auto 1.4 K/mm3 (0.1-0.6); Neutrophils Absolute Auto 13.6 K/mm3 (1.3-6.7); Neutrophils Percent Auto 87.8 % (45.5-73.1); Platelet Count Result 299 k/mm3 (150-375); Red Blood Count 4.04 M/mm3 (4.2-5.4); White Blood Count 15.5 K/mm3 (4.5-10.0)
[2023-10-12] MEDS: MORPHINE SULFATE (*CRX) 2 MG/ML INJ IV PUSH (22:02)
[2023-10-12 22:10] LABS: Anion Gap 12 mmol/L (8-16); Blood Urea Nitrogen 18 mg/dL (7-17); Calcium 9.6 mg/dL (8.4-10.2); Carbon Dioxide 18 mmol/L (22-30); Chloride 94 mmol/L (98-107); Estimated CRCL calculation 57 ml/min; Estimated Glomerular Filt Rate > 60; Glucose 142 mg/dL (65-110); Potassium 4.2 mmol/L (3.4-5.0); Sodium 124 mmol/L (137-145)
[2023-10-12 22:27] LABS: Hypochromasia 1+ (NORMAL); Schistocytes None Seen (NORMAL)
[2023-10-12] MEDS: AZITHROMYCIN 500 MG/NS 250 ML 500 MG/250 ML BAG 250 MG IVPB (22:50)
--- NOTE | 2023-10-12 23:46 | PC.NURSE ---
[facility] transfer center called for an status update on the patient. No bed at this time.
[2023-10-13] VITALS (38 sets, daily range): BP systolic 115–201; BP diastolic 74–112; PULSE 95–133; RESP 11–26; O2SAT 90–100
[2023-10-13] MEDS: ONDANSETRON INJ 4 MG/2 ML VIAL IV PUSH ×3 (00:29→13:04)
[2023-10-13] MEDS: MORPHINE SULFATE (*CRX) 2 MG/ML INJ IV PUSH ×2 (01:51→06:33)
[2023-10-13] MEDS: diphenhydrAMINE HCl INJ 50 MG/ML VIAL 25 MG IV PUSH (02:12)
[2023-10-13] MEDS: LACTATED RINGERS 1,000 ML 100 ML IV CONT (02:27)
--- NOTE | 2023-10-13 06:39 | PC.NURSE ---
Patient got up to use the commode and stated it felt hard to breath. Patient's SPO2 was 88% on RA. 2L/min of O2 applied via nasal cannula and SPO2 went up to 98%. Patient stated she felt anxious. Patient was educated on on deep breathing and oxygen was titrated back down to RA. Patient back to 95% on RA. Notified EDP Dr. Otto who VRBO 2mg IVP Morphine.
--- NOTE | 2023-10-13 07:42 | PC.NURSE ---
Updated [facility] transfer center.
--- NOTE | 2023-10-13 07:54 | PC.NURSE ---
bed status update - no beds remains on wait list
--- NOTE | 2023-10-13 09:40 | ECG_ITS ---
Measurements Intervals [place] Rate: 120 P: 38 WV: 135 QRS: 12 QRSD: 79 T: 5 QT: 310 QTc: 438 Interpretive Statements SINUS TACHYCARDIA FREQUENT ATRIAL PREMATURE COMPLEXES NONSPECIFIC T-WAVE ABNORMALITY- INF/HIGH LAT LEADS BASELINE ARTIFACT- I, III, AVR, AVL, AVF, V1-V3 ABNORMAL ECG COMPARED TO ECG 10/12/2023 19:53:16 NO SIGNIFICANT CHANGES Electronically Signed On 10-13-2023 15:56:25 BIOLOGY MANAGER by Pavel Hull D.O.
--- NOTE | 2023-10-13 10:01 | PC.NURSE ---
Pt stated she did not think she could swallow the pills, MD notified and stated he wanted the pt to remain NPO and not given her pills.
[2023-10-13 14:17] LABS: Prothrombin Time 14.1 Seconds (11.1-14.7)
[2023-10-13 14:18] LABS: Partial Thromboplastin Time 27.6 SECONDS (22.3-36.8)
[2023-10-13 16:31] LABS: pH Pleural Fluid 7.274 (7.210-7.500)
--- NOTE | 2023-10-13 17:41 | PC.NURSE ---
Pt remains on wait list - No beds available
[2023-10-13 19:27] LABS: Appearance Pleural Fluid Bloody (Clear); Color Pleural Fluid Red (Colorless); Lymphocytes Pleural Fluid 5 %; Macrophages Pleural Fluid 26 %; Monocytes Pleural Fluid 41 %; Neutrophils Pleural Fluid 17 % (0-25); Nucleated Cell Pleural Fluid 870 /uL (0-1000); Pleural fluid source Pleural fluid; RBC Pleural Fluid 600000 /uL (0-0)
[2023-10-13 19:28] LABS: Mesothelial Cells Pleural Flui 11 %
--- NOTE | 2023-10-13 20:09 | ECG_ITS ---
Measurements Intervals [place] Rate: 101 P: 26 CO: 132 QRS: 3 QRSD: 86 T: -3 QT: 342 QTc: 445 Interpretive Statements SINUS TACHYCARDIA CONSIDER INFERIOR INFARCT, AGE INDETERMINATE BASELINE WANDER- V2 BORDERLINE ECG COMPARED TO ECG 10/13/2023 09:40:31 HEART RATE HAS DECREASED Electronically Signed On 10-14-2023 7:23:36 COMMUNITY EDUCATION COORDINATOR by Pavel Hull D.O.
--- NOTE | 2023-10-13 20:18 | ECG_ITS ---
Measurements Intervals [place] Rate: 119 P: 26 SD: 131 QRS: 3 QRSD: 83 T: 0 QT: 323 QTc: 454 Interpretive Statements SINUS TACHYCARDIA CONSIDER ANTERIOR INFARCT, AGE INDETERMINATE CONSIDER INFERIOR INFARCT, AGE INDETERMINATE NONSPECIFIC T-WAVE ABNORMALITY- HIGH LATERAL LEADS BASELINE ARTIFACT- I, III, AVR, AVL, AVF ABNORMAL ECG COMPARED TO ECG 10/13/2023 17:30:30 HEART RATE HAS INCREASED T-WAVE ABNORMALITY NOW PRESENT Electronically Signed On 10-14-2023 7:28:41 SENIOR CLINICAL CONSULTANT by Pavel Hull D.O.
[2023-10-13 20:45] LABS: Basophils Percent Auto 0.2 % (0.2-1.2); Eosinophils Absolute Auto 0.1 K/mm3 (0-0.3); Eosinophils Percent Auto 0.7 % (0-4.4); Hematocrit 35.3 % (37.0-47.0); Hemoglobin 11.9 g/dL (12.0-15.0); Immature Granulocyte Absolute 0.09 K/mm3 (0.00-0.031); Immature Granulocyte Percent A 0.6 % (0-0.5); Lymphocytes Absolute Auto 0.82 K/mm3 (0.9-3.2); Lymphocytes Percent Auto 5.4 % (18.3-44.2); Mean Corpuscular HGB Conc 33.7 g/dl (32-36); Mean Corpuscular Volume 91.9 fl (80-100); Mean Platelet Volume 10.4 fl (7.4-10.4); Monocytes Absolute Auto 1.7 K/mm3 (0.1-0.6); Monocytes Percent Auto 11.3 % (2.6-8.5); Neutrophils Absolute Auto 12.4 K/mm3 (1.3-6.7); Neutrophils Percent Auto 81.8 % (45.5-73.1); Platelet Count Result 335 k/mm3 (150-375); Red Blood Count 3.84 M/mm3 (4.2-5.4); White Blood Count 15.1 K/mm3 (4.5-10.0)
[2023-10-13 20:55] LABS: Anion Gap 10 mmol/L (8-16); Blood Urea Nitrogen 19 mg/dL (7-17); Calcium 9.7 mg/dL (8.4-10.2); Carbon Dioxide 22 mmol/L (22-30); Chloride 94 mmol/L (98-107); Estimated CRCL calculation 57 ml/min; Estimated Glomerular Filt Rate > 60; Glucose 121 mg/dL (65-110); Potassium 3.9 mmol/L (3.4-5.0); Sodium 126 mmol/L (137-145)
[2023-10-13 20:56] LABS: Lactic Acid Reflex 1.9 mmol/L (0.7-2.0)
--- NOTE | 2023-10-13 22:29 | PC.NURSE ---
this rn spoke with Lauren, at [facility] transfer center to give update on pt condition.
[2023-10-13] MEDS: AZITHROMYCIN 500 MG/NS 250 ML 500 MG/250 ML BAG 250 MG IVPB (23:07)
[2023-10-14] VITALS (65 sets, daily range): BP systolic 143–198; BP diastolic 81–130; PULSE 97–132; RESP 13–29; O2SAT 77–100
[2023-10-14] MEDS: ONDANSETRON INJ 4 MG/2 ML VIAL IV PUSH ×2 (00:12→18:07)
--- NOTE | 2023-10-14 03:43 | PC.NURSE ---
pt refusing to return to bed after use of bedside commode. pt began to take oxygen off and state, I am going home, you took my clothes, where am I . This RN reorientated pt. Pt was able to answer this RNs' questions correctly and is AO x3. Pt is unable to correctly answer why she is being transferred, where she is being transferred to, and is unable to remember at this where her clothes are and who took them. this rn reorientated pt. This Rn educated pt on importance of staying in bed and wearing her oxygen. pt verbaliized understanding and stated, I feel like I am going to . Pt has stated, I need my son to come here now and get me out of here . This Rn explained to patient it was 0330 in the morning and I would call, but this RN was told by the last RN her son would come back later. Pt verbalized understanding and this rn orientated pt on where she was and where she is going. Pt verbalized understanding.
--- NOTE | 2023-10-14 06:31 | PCRCNOTE ---
Window of time for administration has passed. See next scheduled administration.
--- NOTE | 2023-10-14 06:32 | PC.NURSE ---
this rn called [facility]ary per patient request. This RN spoke with Zachary who stated him and his brother would be there late afternoon and would bring pt her cell phone. pt states she has not had visitors at all yesterday and was getting concerned about why she has had no visitors. this rn reoriented pt on time of day and that both her sons were with her yesterday.
[2023-10-14] MEDS: lisinopriL 20 MG TABLET PO (09:18)
[2023-10-14] MEDS: SIMVASTATIN 20 MG TABLET 40 MG PO (09:18)
[2023-10-14 09:25] LABS: Anion Gap 8 mmol/L (8-16); Blood Urea Nitrogen 18 mg/dL (7-17); Calcium 9.1 mg/dL (8.4-10.2); Carbon Dioxide 23 mmol/L (22-30); Chloride 97 mmol/L (98-107); Estimated CRCL calculation 57 ml/min; Estimated Glomerular Filt Rate > 60; Glucose 133 mg/dL (65-110); Potassium 3.3 mmol/L (3.4-5.0); Sodium 128 mmol/L (137-145)
[2023-10-14] MEDS: METOPROLOL SUCCINATE EXT REL 25 MG TABCR PO (09:31)
--- NOTE | 2023-10-14 10:18 | PC.NURSE ---
Pt having new increased work of breathing, states she feels like she cannot catch her breath. Repositioned more upright, significantly decreased lung sounds on left side. SpO2 98% on her 2L NC. Reports she feels like her chest cannot expand all the way. MD Maravilla made aware and repeat chest x-ray ordered. Pt's color is normal, reports some improvement with position change.
--- NOTE | 2023-10-14 13:01 | ECG_ITS ---
Measurements Intervals [place] Rate: 111 P: 34 GA: 112 QRS: 9 QRSD: 85 T: 16 QT: 344 QTc: 468 Interpretive Statements SINUS TACHYCARDIA WITH SHORT GA INTERVAL ATRIAL PREMATURE COMPLEX CONSIDER ANTERIOR INFARCT, AGE INDETERMINATE CONSIDER INFERIOR INFARCT, AGE INDETERMINATE BASELINE ARTIFACT- I, II, AVR, AVL, AVF, V3 ABNORMAL ECG COMPARED TO ECG 10/13/2023 20:18:59 NO SIGNIFICANT CHANGES Electronically Signed On 10-14-2023 15:20:16 BUILDING SERVICES TECHNICIAN by Pavel Hull D.O.
--- NOTE | 2023-10-14 14:50 | PC.NURSE ---
RN called transfer center to see if there is an update on a room becoming available. RN was told that there is still no availability, that it could be another day or longer before getting a room. made aware of this. MD Maravilla also made aware that pt has been complaining of increased SOB, has shown increased work of breathing, needing to be sitting completely upright in near tripod position for comfort, and RR increased to 25 RR/min. Plan to get repeat x-ray at this time to evaluate need for intervention. Pt continues to have SpO2 97% on 2L NC. Pt and family updated.
--- NOTE | 2023-10-14 16:13 | PC.NURSE ---
This RN just spoke with Yudith from [facility] transfer center, room assigned at [facility] room [id number]. MD Maravilla at bedside updating pt and family. Will arrange transportation.
[2023-10-18 22:55] LABS: Albumin Pleural Fluid 2.3 g/dL
[2023-10-25 19:52] LABS: Glucose Pleural Fluid 73 mg/dL
== END 2023-10-14 19:10 | disposition short-term general hospital (02) ==
PROVIDERS: Emergency Medicine; Physician Assistant; Emergency Provider Emergency Medicine; PCP Internal Medicine
DX: J90 Pleural effusion, not elsewhere classified (principal); E87.1 Hypo-osmolality and hyponatremia; R10.32 Left lower quadrant pain; Z20.822 Contact with and (suspected) exposure to COVID-19; C34.90 Malignant neoplasm of unspecified part of unspecified bronchus or lung; I10 Essential (primary) hypertension; E78.5 Hyperlipidemia, unspecified; G31.84 Mild cognitive impairment of uncertain or unknown etiology; Z66 Do not resuscitate; Z90.710 Acquired absence of both cervix and uterus; Z90.49 Acquired absence of other specified parts of digestive tract; Z90.5 Acquired absence of kidney; Z79.60 Long term (current) use of unspecified immunomodulators and immunosuppressants; R00.0 Tachycardia, unspecified; I49.1 Atrial premature depolarization; I49.3 Ventricular premature depolarization; R94.31 Abnormal electrocardiogram [ECG] [EKG]; R91.8 Other nonspecific abnormal finding of lung field; Z92.3 Personal history of irradiation
CPT/HCPCS: 32555; 36415; 71045; 71046; 71275; 74177; 80048; 80053; 81001; 82042; 82150; 82945; 83605; 83615; 83690; 83880; 83986; 84157; 84311; 84478; 84484; 85025; 85610; 85730; 87015; 87040; 87070; 87075; 87102; 87116; 87205; 87206; 87637; 88108; 88184; 88305; 88342; 89051; 93005; 96361; 96365; 96366; 96367; 96375; 96376; 99285; A9270; J0456; J0696; J1200; J2270; J2405; J3480; J7030; J7120; Q9967